=== PATIENT | female | born 1965 | race African-American/Black ===

== ENCOUNTER 2019-01-17 15:21 | Inpatient (IN) | payer MEDICAID ==
[~2019-01-17] VITALS: Ht 162.6 cm; Wt 78.9 kg
[~2019-01-17 15:21] MED LIST: AMIT25TA9 PO; ATEN50TA PO; BACLOFEN; BENA40TA9 PO; CARI350T27 PO; CLON0.3T PO; FURO40TA5 PO; GABA-533 PO; HYDR50TA55 PO; LASIX; OXYC-23; POTA10TA11 PO; [UNRECOGNIZED DRUG - OTHER]
[2019-01-17] MEDS ORDERED: ONDANSETRON HCL 4MG/2ML INJ IV STA (16:44)
[2019-01-17] MEDS ORDERED: MORPHINE SULFATE 4 MG/ML CPJ (NOT FOR IM USE) IV STA (16:44)
[2019-01-17] MEDS ORDERED: NITROGLYCERIN OINT 1GM/INCH UDPKT TD ONE (16:45)
[2019-01-17] MEDS ORDERED: PIPERACILLIN/TAZ 3.375G PREMIX 50 ML IV ONE (16:45)
[2019-01-17] MEDS ORDERED: ASPIRIN 81MG TABLET PO ONE (16:45)
[2019-01-17] MEDS ORDERED: ENALAPRIL 2.5MG/2ML VIAL 2ML IV ONE (16:45)
[2019-01-17] MEDS ORDERED: VANCOMYCIN 1 G PREMIX 200 ML IV ONE (16:45)
[2019-01-17 17:32] LABS: BASOPHILS % 0.5 % (0.0-2.0); HEMATOCRIT. 39.8 % (36.0-48.0); HEMOGLOBIN. 13.1 g/dL (12.0-16.0); LYMPHOCYTES % 24.7 % (20.0-50.0); MEAN CORPUSCULAR VOLUME 84.8 fL (81.0-99.0); MEAN PLATELET VOLUME 8.4 fl (7.4-10.4); MONOCYTES % 7.8 % (2.0-8.0); PLATELET 279 x1000/uL (130-400); RED BLOOD CELL COUNT 4.69 mill/uL (4.2-5.4); RED CELL DISTRIBUTION WIDTH 15.7 % (11.6-14.6)
[2019-01-17 17:34] LABS: PROTHROMBIN TIME 9.8 sec (9.6-11.0)
[2019-01-17 17:36] LABS: CHLORIDE 110 mEq/L (98-107)
[2019-01-17 17:40] LABS: ETHANOL BLOOD < 10 mg/dL
[2019-01-17 17:43] LABS: C REACTIVE PROTEIN QUANT 7.9 mg/L (0.0-3.0)
[2019-01-17] MEDS ORDERED: OXYCODONE HCL/ACETAMINOPHEN 5/325MG TABLET PO ONE (19:00)
[2019-01-17] MEDS ORDERED: CLONIDINE 0.1MG TABLET PO PRN (20:00)
[2019-01-17] MEDS ORDERED: ONDANSETRON HCL 4MG/2ML INJ IV PRN (20:00)
[2019-01-17] MEDS ORDERED: IPRATROPIUM/ALBUTEROL 0.5-3(2.5)MG/3ML NEB HHN PRN (20:00)
[2019-01-17] MEDS ORDERED: MAGNESIUM/ALUMINUM HYDROXIDE/SIMETHICONE 30ML UDC PO PRN (20:00)
[2019-01-17] MEDS ORDERED: GUAIFENESIN 200MG/10ML SUGAR FREE UDC PO PRN (20:00)
[2019-01-17 20:33] LABS: PHOSPHORUS 4.4 mg/dL (2.5-4.9)
[2019-01-17 23:00] VITALS: BP 140/80
[2019-01-17] MEDS: HYDROCODONE/ACETAMINOPHEN 5/325MG TABLET PO PRN (23:14)
[2019-01-18] VITALS (8 sets, daily range): BP systolic 78–150; BP diastolic 49–91
[2019-01-18] MEDS: DIPHENHYDRAMINE 50MG/ML VIAL IV PRN ×3 (02:05→15:32)
[2019-01-18] MEDS: HYDROCODONE/ACETAMINOPHEN 5/325MG TABLET PO PRN ×2 (03:08→09:01)
[2019-01-18 07:06] LABS: BASOPHILS % 0.6 % (0.0-2.0); HEMATOCRIT. 35.6 % (36.0-48.0); HEMOGLOBIN. 11.8 g/dL (12.0-16.0); MEAN CORPUSCULAR HEMOGLOBIN 28.2 pg (28.0-32.0); MEAN CORPUSCULAR VOLUME 85.5 fL (81.0-99.0); MEAN PLATELET VOLUME 8.4 fl (7.4-10.4); MONOCYTES % 8.8 % (2.0-8.0); NEUTROPHILS % 55.6 % (40.0-76.0); PLATELET 228 x1000/uL (130-400); RED BLOOD CELL COUNT 4.17 mill/uL (4.2-5.4); RED CELL DISTRIBUTION WIDTH 15.3 % (11.6-14.6)
[2019-01-18 07:16] LABS: CHLORIDE 110 mEq/L (98-107)
[2019-01-18 07:30] LABS: LDL CHOLESTEROL 62 mg/dL (5-100)
[2019-01-18 07:32] LABS: HDL CHOLESTEROL 67 mg/dL (40-59)
[2019-01-18] MEDS: DOCUSATE SODIUM 100MG CAPSULE PO PRN ×2 (09:00→17:41)
[2019-01-18] MEDS: ENOXAPARIN 40MG/0.4ML SYR SUBCUT SCH (09:00)
[2019-01-18] MEDS: AMLODIPINE 5MG TABLET PO SCH ×2 (09:01→22:00)
[2019-01-18] MEDS: HYDROXYZINE 25MG TABLET PO PRN (12:00)
[2019-01-18] MEDS: CARISOPRODOL 350 MG TABLET PO SCH ×2 (12:22→17:41)
[2019-01-18] MEDS: GABAPENTIN 400MG CAPSULE PO SCH ×2 (12:22→17:42)
[2019-01-18] MEDS: OXYCODONE HCL/ACETAMINOPHEN 5/325MG TABLET PO PRN (13:53)
[2019-01-18] MEDS ORDERED: CLONIDINE 0.3MG TABLET PO SCH (17:00)
[2019-01-18] MEDS ORDERED: ATENOLOL 50 MG TABLET PO SCH (17:00)
[2019-01-18] MEDS: AMITRIPTYLINE 25MG TABLET PO SCH (17:42)
[2019-01-18] MEDS ORDERED: SODIUM CHLORIDE 0.9% 500 ML IV NR (22:15)
[2019-01-19] VITALS (11 sets, daily range): BP systolic 88–136; BP diastolic 36–88
[2019-01-19] MEDS ORDERED: PIPERACILLIN/TAZOBACTAM 3.375GM/50ML PREMIX IV SCH (02:00)
[2019-01-19] MEDS: OXYCODONE HCL/ACETAMINOPHEN 5/325MG TABLET PO PRN ×4 (02:43→16:15)
[2019-01-19] MEDS: DIPHENHYDRAMINE 50MG/ML VIAL IV PRN ×3 (02:45→16:13)
[2019-01-19] MEDS: SODIUM CHLORIDE 0.9% 1,000 ML IV SCH ×2 (02:46→21:05)
[2019-01-19] MEDS: PIPERACILLIN/TAZOBACTAM 3.375 G in DEXT 5% WATER 100 ML IV SCH ×2 (03:46→12:00)
[2019-01-19] MEDS ORDERED: VANCOMYCIN 750 MG PREMIX 150 ML IV SCH ×2 (04:00→20:00)
[2019-01-19] MEDS: HYDROCODONE/ACETAMINOPHEN 5/325MG TABLET PO PRN (08:40)
[2019-01-19] MEDS ORDERED: POTASSIUM CHLORIDE 10MEQ TABLET SR PO SCH (09:00)
[2019-01-19] MEDS ORDERED: BENAZEPRIL 10MG TABLET PO SCH (09:00)
[2019-01-19] MEDS: ENOXAPARIN 40MG/0.4ML SYR SUBCUT SCH (09:00)
[2019-01-19] MEDS ORDERED: FUROSEMIDE 40MG TABLET PO SCH (09:00)
[2019-01-19] MEDS: CARISOPRODOL 350 MG TABLET PO SCH ×3 (10:19→16:13)
[2019-01-19 11:30] LABS: BASOPHILS % 0.3 % (0.0-2.0); EOSINOPHILS % 4.4 % (0.0-5.0); HEMOGLOBIN. 11.3 g/dL (12.0-16.0); LYMPHOCYTES % 35.7 % (20.0-50.0); MEAN CORPUSCULAR HEMOGLOBIN 28.5 pg (28.0-32.0); MEAN CORPUSCULAR VOLUME 85.7 fL (81.0-99.0); MEAN PLATELET VOLUME 8.7 fl (7.4-10.4); MONOCYTES % 10.2 % (2.0-8.0); NEUTROPHILS % 49.4 % (40.0-76.0); PLATELET 201 x1000/uL (130-400); RED BLOOD CELL COUNT 3.96 mill/uL (4.2-5.4); RED CELL DISTRIBUTION WIDTH 15.7 % (11.6-14.6)
[2019-01-19] MEDS: GABAPENTIN 400MG CAPSULE PO SCH ×2 (12:30→21:05)
[2019-01-19] MEDS ORDERED: LIDOCAINE HCL 1% 20ML VIAL (Pyxis) INJ ONE (14:00)
[2019-01-19] MEDS ORDERED: SODIUM BICARBONATE 4% (2.4MEQ) 5ML VIAL IV ONE (14:01)
[2019-01-19] MEDS: AMITRIPTYLINE 25MG TABLET PO SCH (16:13)
[2019-01-19] MEDS: ENOXAPARIN 30MG/0.3ML SYR SUBCUT SCH (17:22)
[2019-01-19] MEDS: CEFTRIAXONE 2 G in DEXTROSE 5% WATER 50 ML IV SCH (18:25)
[2019-01-20] VITALS (12 sets, daily range): BP systolic 102–147; BP diastolic 59–89
[2019-01-20] MEDS: DIPHENHYDRAMINE 50MG/ML VIAL IV PRN ×4 (02:08→21:25)
[2019-01-20] MEDS: OXYCODONE HCL/ACETAMINOPHEN 5/325MG TABLET PO PRN ×3 (04:38→18:47)
[2019-01-20 07:12] LABS: HIV SCREEN 4G Non Reactive (Non Reactive)
[2019-01-20 07:50] LABS: BASOPHILS % 0.4 % (0.0-2.0); EOSINOPHILS % 3.5 % (0.0-5.0); HEMATOCRIT. 32.8 % (36.0-48.0); HEMOGLOBIN. 10.8 g/dL (12.0-16.0); LYMPHOCYTES % 31.6 % (20.0-50.0); MEAN CORPUSCULAR HEMOGLOBIN 28.1 pg (28.0-32.0); MEAN CORPUSCULAR VOLUME 85.4 fL (81.0-99.0); MEAN PLATELET VOLUME 8.8 fl (7.4-10.4); MONOCYTES % 11.7 % (2.0-8.0); NEUTROPHILS % 52.8 % (40.0-76.0); PLATELET 182 x1000/uL (130-400); RED BLOOD CELL COUNT 3.84 mill/uL (4.2-5.4); RED CELL DISTRIBUTION WIDTH 15.6 % (11.6-14.6)
[2019-01-20] MEDS: CARISOPRODOL 350 MG TABLET PO SCH ×3 (09:57→16:08)
[2019-01-20] MEDS: GABAPENTIN 400MG CAPSULE PO SCH ×3 (09:57→16:08)
[2019-01-20] MEDS ORDERED: CLONIDINE 0.1MG TABLET PO PRN (10:15)
[2019-01-20] MEDS: VANCOMYCIN 750 MG PREMIX 150 ML IV SCH ×2 (11:46→21:25)
[2019-01-20 12:42] LABS: CLARITY URINE CLEAR (CLEAR); COLOR URINE YELLOW (YELLOW); KETONES URINE NEGATIVE (NEGATIVE); LEUKOCYTE ESTERASE URINE NEGATIVE (NEGATIVE); NITRITE URINE NEGATIVE (NEGATIVE); OCCULT BLOOD URINE NEGATIVE (NEGATIVE); PROTEIN URINE NEGATIVE (NEGATIVE); UROBILINOGEN URINE 0.2 E.U./dL (0.2-1.0)
[2019-01-20] MEDS ORDERED: MORPHINE SULFATE 2 MG/ML CPJ (NOT FOR IM USE) IV NR (15:30)
[2019-01-20] MEDS: ENOXAPARIN 30MG/0.3ML SYR SUBCUT SCH (16:08)
[2019-01-20] MEDS: CEFTRIAXONE 2 G in DEXTROSE 5% WATER 50 ML IV SCH (17:32)
[2019-01-20] MEDS: SODIUM CHLORIDE 0.9% 1,000 ML IV SCH (17:33)
[2019-01-20] MEDS: AMITRIPTYLINE 25MG TABLET PO SCH (21:26)
[2019-01-21] VITALS (9 sets, daily range): BP systolic 101–161; BP diastolic 25–104
[2019-01-21] MEDS: DIPHENHYDRAMINE 50MG/ML VIAL IV PRN ×6 (00:48→23:47)
[2019-01-21] MEDS: OXYCODONE HCL/ACETAMINOPHEN 5/325MG TABLET PO PRN ×4 (00:49→19:45)
[2019-01-21 07:01] LABS: BASOPHILS % 0.5 % (0.0-2.0); EOSINOPHILS % 4.8 % (0.0-5.0); HEMATOCRIT. 32.2 % (36.0-48.0); HEMOGLOBIN. 10.5 g/dL (12.0-16.0); LYMPHOCYTES % 31.6 % (20.0-50.0); MEAN CORPUSCULAR VOLUME 85.7 fL (81.0-99.0); MEAN PLATELET VOLUME 8.7 fl (7.4-10.4); NEUTROPHILS % 52.1 % (40.0-76.0); PLATELET 181 x1000/uL (130-400); RED BLOOD CELL COUNT 3.76 mill/uL (4.2-5.4); RED CELL DISTRIBUTION WIDTH 15.4 % (11.6-14.6)
[2019-01-21 07:12] LABS: CHLORIDE 109 mEq/L (98-107)
[2019-01-21] MEDS: GABAPENTIN 400MG CAPSULE PO SCH ×3 (08:33→17:29)
[2019-01-21] MEDS: CARISOPRODOL 350 MG TABLET PO SCH ×3 (08:33→17:29)
[2019-01-21] MEDS: VANCOMYCIN 750 MG PREMIX 150 ML IV SCH (09:45)
[2019-01-21] MEDS: HYDROXYZINE 25MG TABLET PO PRN ×2 (11:12→23:46)
[2019-01-21] MEDS: AMLODIPINE 2.5MG TABLET PO SCH ×2 (14:03→20:58)
[2019-01-21] MEDS ORDERED: ENOXAPARIN 40MG/0.4ML SYR SUBCUT SCH (17:00)
[2019-01-21] MEDS: CEFTRIAXONE 2 G in DEXTROSE 5% WATER 50 ML IV SCH (17:29)
[2019-01-21] MEDS: AMITRIPTYLINE 25MG TABLET PO SCH (20:57)
[2019-01-22] VITALS (15 sets, daily range): BP systolic 46–171; BP diastolic 34–108
[2019-01-22] MEDS: HYDROMORPHONE HCL/PF 2MG/ML CPJ IV PRN ×5 (00:41→13:22)
[2019-01-22] MEDS: VANCOMYCIN 1 G PREMIX 200 ML IV SCH ×2 (03:24→22:29)
[2019-01-22] MEDS: CARISOPRODOL 350 MG TABLET PO SCH ×3 (08:16→17:00)
[2019-01-22] MEDS: AMLODIPINE 2.5MG TABLET PO SCH ×2 (08:16→22:28)
[2019-01-22] MEDS: GABAPENTIN 400MG CAPSULE PO SCH ×3 (08:16→17:00)
[2019-01-22] MEDS: DEXT 5%/0.9% NACL 1,000 ML IV SCH ×2 (08:54→22:29)
[2019-01-22 09:22] LABS: BASOPHILS % 0.5 % (0.0-2.0); EOSINOPHILS % 5.8 % (0.0-5.0); HEMATOCRIT. 32.3 % (36.0-48.0); HEMOGLOBIN. 10.5 g/dL (12.0-16.0); LYMPHOCYTES % 26.4 % (20.0-50.0); MEAN CORPUSCULAR HEMOGLOBIN 27.9 pg (28.0-32.0); MEAN CORPUSCULAR VOLUME 85.5 fL (81.0-99.0); MEAN PLATELET VOLUME 8.5 fl (7.4-10.4); MONOCYTES % 10.1 % (2.0-8.0); NEUTROPHILS % 57.2 % (40.0-76.0); PLATELET 195 x1000/uL (130-400); RED BLOOD CELL COUNT 3.77 mill/uL (4.2-5.4); RED CELL DISTRIBUTION WIDTH 15.5 % (11.6-14.6)
[2019-01-22 09:44] LABS: CHLORIDE 107 mEq/L (98-107)
[2019-01-22 09:50] LABS: PHOSPHORUS 4.3 mg/dL (2.5-4.9)
[2019-01-22] MEDS: DIPHENHYDRAMINE 50MG/ML VIAL IV PRN (12:16)
[2019-01-22] MEDS ORDERED: NALOXONE HCL 0.4 MG/ML 1ML VIAL IV PRN ×2 (13:00→17:30)
[2019-01-22] MEDS ORDERED: BUPIVACAINE HCL/PF 0.25% (2.5MG/ML) 10ML ONE (14:20)
[2019-01-22] MEDS ORDERED: VANCOMYCIN HCL 500 MG/VIAL ONE ×2 (14:21→16:09)
[2019-01-22] MEDS ORDERED: BACITRACIN 50,000 UNITS/VIAL ONE (14:21)
[2019-01-22] MEDS ORDERED: GENTAMICIN SULF 40MG/ML 2ML VIAL ONE (15:32)
[2019-01-22] MEDS ORDERED: EPINEPHRINE 1:1000 1 MG/ML AMP ONE (16:26)
[2019-01-22] MEDS ORDERED: MORPHINE SULFATE/PF 1MG/ML 10ML AMP ONE (16:26)
[2019-01-22] MEDS ORDERED: ROPIVACAINE HCL 10MG/ML 20 ML VIAL EPI ONE (16:27)
[2019-01-22] MEDS ORDERED: KETOROLAC 30MG/ML VIAL ONE (16:27)
[2019-01-22] MEDS ORDERED: TRANEXAMIC ACID 1,000 MG in SODIUM CHLORIDE 0.9% 100 ML IV NR ×2 (16:30→17:30)
[2019-01-22] MEDS ORDERED: FENTANYL CITRATE/PF 50MCG/ML 2ML VIAL ONE (16:55)
[2019-01-22] MEDS ORDERED: MIDAZOLAM HCL 2 MG/2 ML VIAL ONE (16:55)
[2019-01-22] MEDS ORDERED: PROPOFOL 200MG/20ML VIAL IV ONE (16:55)
[2019-01-22] MEDS ORDERED: TRANEXAMIC ACID 1,000 MG/10 ML IV NR (17:00)
[2019-01-22] MEDS ORDERED: ONDANSETRON HCL 4MG/2ML INJ ONE (17:15)
[2019-01-22] MEDS ORDERED: DEXAMETHASONE 4MG/ML 1ML VIAL ONE (17:15)
[2019-01-22] MEDS ORDERED: HYDROMORPHONE HCL/PF 2MG/ML CPJ IV PRN (17:30)
[2019-01-22] MEDS ORDERED: ONDANSETRON HCL 4MG/2ML INJ IM PRN (17:30)
[2019-01-22] MEDS ORDERED: MEPERIDINE HCL/PF 25MG/ML CPJ IV PRN (17:30)
[2019-01-22] MEDS ORDERED: DIPHENHYDRAMINE 50MG/ML VIAL IM PRN (17:30)
[2019-01-22] MEDS ORDERED: ONDANSETRON HCL 4MG/2ML INJ IV PRN (17:30)
[2019-01-22] MEDS ORDERED: LABETALOL 5MG/ML SYR 20 MG/4 ML SYRINGE IV PRN (17:30)
[2019-01-22] MEDS: CEFTRIAXONE 2 G in DEXTROSE 5% WATER 50 ML IV SCH (18:45)
[2019-01-22] MEDS ORDERED: KETOROLAC 30MG/ML VIAL IV PRN (20:15)
[2019-01-22] MEDS ORDERED: LORAZEPAM 2MG/ML CPJ IV PRN (20:30)
[2019-01-22] MEDS: OXYCODONE HCL/ACETAMINOPHEN 5/325MG TABLET PO PRN (21:38)
[2019-01-22] MEDS: AMITRIPTYLINE 25MG TABLET PO SCH (22:27)
[2019-01-23] VITALS (12 sets, daily range): BP systolic 81–190; BP diastolic 55–106
[2019-01-23] MEDS: HYDROMORPHONE HCL/PF 2MG/ML CPJ IV PRN ×2 (00:13→06:02)
[2019-01-23 05:56] LABS: CHLORIDE 106 mEq/L (98-107)
[2019-01-23] MEDS: DIPHENHYDRAMINE 50MG/ML VIAL IV PRN (06:01)
[2019-01-23 06:16] LABS: MEAN CORPUSCULAR HEMOGLOBIN 28.4 pg (28.0-32.0); MEAN CORPUSCULAR VOLUME 87.6 fL (81.0-99.0); MEAN PLATELET VOLUME 8.4 fl (7.4-10.4); PLATELET 165 x1000/uL (130-400); RED BLOOD CELL COUNT 3.88 mill/uL (4.2-5.4); RED CELL DISTRIBUTION WIDTH 15.7 % (11.6-14.6)
[2019-01-23] MEDS: CARISOPRODOL 350 MG TABLET PO SCH ×3 (08:32→17:03)
[2019-01-23] MEDS: GABAPENTIN 400MG CAPSULE PO SCH ×3 (08:32→17:03)
[2019-01-23] MEDS: CLONIDINE 0.1MG TABLET PO SCH ×3 (08:32→21:37)
[2019-01-23] MEDS: AMLODIPINE 2.5MG TABLET PO SCH ×2 (08:32→21:37)
[2019-01-23] MEDS: LORAZEPAM 2MG/ML CPJ IV PRN (10:36)
[2019-01-23] MEDS: ACETAMINOPHEN 325MG TABLET PO PRN ×2 (10:56→21:38)
[2019-01-23 11:32] LABS: PLATELET ESTIMATE NORMAL
[2019-01-23] MEDS: DEXT 5%/0.9% NACL 1,000 ML IV SCH (12:31)
[2019-01-23] MEDS: VANCOMYCIN 1 G PREMIX 200 ML IV SCH (17:03)
[2019-01-23] MEDS: CEFTRIAXONE 2 G in DEXTROSE 5% WATER 50 ML IV SCH (17:59)
[2019-01-23] MEDS: AMITRIPTYLINE 25MG TABLET PO SCH (21:36)
[2019-01-24] VITALS: BP 114/67
[2019-01-24] MEDS: HYDROMORPHONE HCL/PF 2MG/ML CPJ IV PRN ×5 (01:43→18:56)
[2019-01-24 04:00] VITALS: BP 113/70
[2019-01-24] MEDS: CLONIDINE 0.1MG TABLET PO SCH ×3 (05:34→22:00)
[2019-01-24 08:00] VITALS: BP 162/81
[2019-01-24] MEDS: CARISOPRODOL 350 MG TABLET PO SCH ×3 (08:07→17:58)
[2019-01-24] MEDS: AMLODIPINE 2.5MG TABLET PO SCH (08:07)
[2019-01-24] MEDS: GABAPENTIN 400MG CAPSULE PO SCH ×3 (08:07→17:58)
[2019-01-24 11:04] LABS: BASOPHILS % 0.5 % (0.0-2.0); EOSINOPHILS % 1.2 % (0.0-5.0); LYMPHOCYTES % 13.1 % (20.0-50.0); MEAN CORPUSCULAR HEMOGLOBIN 28.3 pg (28.0-32.0); MEAN CORPUSCULAR VOLUME 85.6 fL (81.0-99.0); MEAN PLATELET VOLUME 8.9 fl (7.4-10.4); MONOCYTES % 9.7 % (2.0-8.0); NEUTROPHILS % 75.5 % (40.0-76.0); PLATELET 134 x1000/uL (130-400); RED BLOOD CELL COUNT 3.06 mill/uL (4.2-5.4); RED CELL DISTRIBUTION WIDTH 15.4 % (11.6-14.6)
[2019-01-24 11:06] LABS: CHLORIDE 103 mEq/L (98-107)
[2019-01-24 11:12] LABS: HEMATOCRIT. 26.2 % (36.0-48.0); HEMOGLOBIN. 8.7 g/dL (12.0-16.0)
[2019-01-24 12:00] VITALS: BP 123/74
[2019-01-24] MEDS: OXYCODONE HCL/ACETAMINOPHEN 5/325MG TABLET PO PRN ×2 (13:06→20:52)
[2019-01-24] MEDS: DEXT 5%/0.9% NACL 1,000 ML IV SCH (13:07)
[2019-01-24] MEDS ORDERED: ZOLPIDEM TARTRATE 5MG TABLET PO PRN (14:00)
[2019-01-24] MEDS: VANCOMYCIN 1 G PREMIX 200 ML IV SCH (14:38)
[2019-01-24 16:00] VITALS: BP 101/59
[2019-01-24] MEDS: CEFTRIAXONE 2 G in DEXTROSE 5% WATER 50 ML IV SCH (17:58)
[2019-01-24 20:00] VITALS: BP 111/56
[2019-01-24] MEDS: AMITRIPTYLINE 25MG TABLET PO SCH (20:52)
[2019-01-24] MEDS: DIPHENHYDRAMINE 50MG/ML VIAL IV PRN (22:11)
[2019-01-25] VITALS: BP_SYST 134; BP_SYST 99; BP_DIAS 52; BP_DIAS 79
[2019-01-25] MEDS: ACETAMINOPHEN 325MG TABLET PO PRN (01:54)
[2019-01-25 04:00] VITALS: BP_SYST 139; BP_SYST 99; BP_DIAS 52; BP_DIAS 70
[2019-01-25] MEDS: DEXT 5%/0.9% NACL 1,000 ML IV SCH (04:56)
[2019-01-25] MEDS: HYDROMORPHONE HCL/PF 2MG/ML CPJ IV PRN ×4 (04:57→20:37)
[2019-01-25] MEDS: VANCOMYCIN 1 G PREMIX 200 ML IV SCH ×2 (05:03→18:49)
[2019-01-25] MEDS: CLONIDINE 0.1MG TABLET PO SCH ×3 (06:00→21:32)
[2019-01-25 07:37] LABS: BASOPHILS % 0.2 % (0.0-2.0); EOSINOPHILS % 2.2 % (0.0-5.0); HEMATOCRIT. 24.5 % (36.0-48.0); HEMOGLOBIN. 8.4 g/dL (12.0-16.0); LYMPHOCYTES % 18.3 % (20.0-50.0); MEAN CORPUSCULAR HEMOGLOBIN 28.9 pg (28.0-32.0); MEAN CORPUSCULAR VOLUME 84.5 fL (81.0-99.0); MEAN PLATELET VOLUME 8.5 fl (7.4-10.4); MONOCYTES % 9.9 % (2.0-8.0); NEUTROPHILS % 69.4 % (40.0-76.0); PLATELET 150 x1000/uL (130-400); RED CELL DISTRIBUTION WIDTH 15.1 % (11.6-14.6)
[2019-01-25 08:00] VITALS: BP 114/73
[2019-01-25 08:26] LABS: PHOSPHORUS 4.3 mg/dL (2.5-4.9)
[2019-01-25] MEDS: CARISOPRODOL 350 MG TABLET PO SCH ×3 (08:32→17:12)
[2019-01-25] MEDS: GABAPENTIN 400MG CAPSULE PO SCH ×3 (08:32→17:12)
[2019-01-25] MEDS: OXYCODONE HCL/ACETAMINOPHEN 5/325MG TABLET PO PRN ×3 (08:33→22:19)
[2019-01-25] MEDS: DIPHENHYDRAMINE 50MG/ML VIAL IV PRN ×3 (10:40→21:18)
[2019-01-25 12:33] VITALS: BP 101/63
[2019-01-25 16:00] VITALS: BP 105/69
[2019-01-25] MEDS: CEFTRIAXONE 2 G in DEXTROSE 5% WATER 50 ML IV SCH (17:12)
[2019-01-25 20:00] VITALS: BP 144/82
[2019-01-25] MEDS: AMITRIPTYLINE 25MG TABLET PO SCH (21:18)
[2019-01-26] VITALS: BP 105/65
[2019-01-26] MEDS: HYDROMORPHONE HCL/PF 2MG/ML CPJ IV PRN ×5 (00:09→17:27)
[2019-01-26] MEDS: DEXT 5%/0.9% NACL 1,000 ML IV SCH ×2 (02:34→20:10)
[2019-01-26] MEDS: DIPHENHYDRAMINE 50MG/ML VIAL IV PRN ×4 (02:35→19:56)
[2019-01-26 04:00] VITALS: BP 104/65
[2019-01-26] MEDS: CLONIDINE 0.1MG TABLET PO SCH (05:55)
[2019-01-26] MEDS: VANCOMYCIN 1 G PREMIX 200 ML IV SCH ×2 (06:12→19:58)
[2019-01-26] MEDS: OXYCODONE HCL/ACETAMINOPHEN 5/325MG TABLET PO PRN (06:20)
[2019-01-26 08:00] VITALS: BP 119/70
[2019-01-26] MEDS: GABAPENTIN 400MG CAPSULE PO SCH ×3 (08:03→17:26)
[2019-01-26 08:12] LABS: BASOPHILS % 0.5 % (0.0-2.0); HEMOGLOBIN. 7.6 g/dL (12.0-16.0); LYMPHOCYTES % 22.3 % (20.0-50.0); MEAN CORPUSCULAR HEMOGLOBIN 28.3 pg (28.0-32.0); MEAN CORPUSCULAR VOLUME 85.3 fL (81.0-99.0); MEAN PLATELET VOLUME 8.8 fl (7.4-10.4); MONOCYTES % 9.9 % (2.0-8.0); NEUTROPHILS % 63.3 % (40.0-76.0); PLATELET 168 x1000/uL (130-400); RED CELL DISTRIBUTION WIDTH 15.4 % (11.6-14.6)
[2019-01-26 08:33] LABS: CHLORIDE 109 mEq/L (98-107)
[2019-01-26 08:45] LABS: PHOSPHORUS 4.4 mg/dL (2.5-4.9)
[2019-01-26] MEDS: CARISOPRODOL 350 MG TABLET PO SCH ×3 (09:07→17:26)
[2019-01-26] MEDS: ACETAMINOPHEN 325MG TABLET PO PRN ×2 (09:08→19:57)
[2019-01-26 12:00] VITALS: BP 118/64
[2019-01-26 16:00] VITALS: BP 121/68
[2019-01-26] MEDS: CEFTRIAXONE 2 G in DEXTROSE 5% WATER 50 ML IV SCH (18:29)
[2019-01-26 20:00] VITALS: BP_SYST 127; BP_SYST 132; BP_DIAS 75; BP_DIAS 84
[2019-01-26] MEDS: AMITRIPTYLINE 25MG TABLET PO SCH (20:03)
[2019-01-27] VITALS (11 sets, daily range): BP systolic 112–154; BP diastolic 72–98
[2019-01-27] MEDS ORDERED: HYDROMORPHONE HCL/PF 2MG/ML CPJ IV PRN (03:00)
[2019-01-27] MEDS: DIPHENHYDRAMINE 50MG/ML VIAL IV PRN ×3 (04:40→18:55)
[2019-01-27] MEDS: OXYCODONE HCL/ACETAMINOPHEN 5/325MG TABLET PO PRN ×2 (07:30→13:31)
[2019-01-27] MEDS: VANCOMYCIN 1 G PREMIX 200 ML IV SCH (08:51)
[2019-01-27] MEDS: GABAPENTIN 400MG CAPSULE PO SCH ×3 (08:52→16:37)
[2019-01-27] MEDS: CARISOPRODOL 350 MG TABLET PO SCH ×3 (08:52→16:37)
[2019-01-27 09:40] LABS: BASOPHILS % 0.5 % (0.0-2.0); EOSINOPHILS % 3.6 % (0.0-5.0); HEMATOCRIT. 27.2 % (36.0-48.0); HEMOGLOBIN. 9.1 g/dL (12.0-16.0); LYMPHOCYTES % 19.5 % (20.0-50.0); MEAN CORPUSCULAR HEMOGLOBIN 28.3 pg (28.0-32.0); MEAN PLATELET VOLUME 8.3 fl (7.4-10.4); MONOCYTES % 7.3 % (2.0-8.0); NEUTROPHILS % 69.1 % (40.0-76.0); PLATELET 215 x1000/uL (130-400); RED CELL DISTRIBUTION WIDTH 15.1 % (11.6-14.6)
[2019-01-27 09:57] LABS: CHLORIDE 107 mEq/L (98-107)
[2019-01-27] MEDS ORDERED: HYDROMORPHONE HCL/PF 2MG/ML CPJ IV SCH (10:15)
[2019-01-27] MEDS ORDERED: NALOXONE HCL 0.4 MG/ML 1ML VIAL IV PRN (10:15)
[2019-01-27] MEDS: CLONIDINE 0.2MG TABLET PO SCH ×2 (14:49→21:22)
[2019-01-27] MEDS: HYDROMORPHONE HCL/PF 2MG/ML CPJ IV PRN ×2 (16:38→20:47)
[2019-01-27] MEDS: CEFTRIAXONE 2 G in DEXTROSE 5% WATER 50 ML IV SCH (18:05)
[2019-01-27] MEDS: AMITRIPTYLINE 25MG TABLET PO SCH (20:46)
[2019-01-28] VITALS: BP 140/86
[2019-01-28] MEDS: VANCOMYCIN 750 MG PREMIX 150 ML IV SCH ×3 (00:23→23:09)
[2019-01-28] MEDS: LORAZEPAM 2MG/ML CPJ IV PRN (00:23)
[2019-01-28] MEDS: HYDROMORPHONE HCL/PF 2MG/ML CPJ IV PRN ×5 (03:30→18:39)
[2019-01-28 04:00] VITALS: BP 105/84
[2019-01-28 05:34] LABS: CHLORIDE 106 mEq/L (98-107)
[2019-01-28 05:39] LABS: PHOSPHORUS 4.5 mg/dL (2.5-4.9)
[2019-01-28 05:51] LABS: BASOPHILS % 0.5 % (0.0-2.0); EOSINOPHILS % 4.1 % (0.0-5.0); HEMATOCRIT. 27.4 % (36.0-48.0); HEMOGLOBIN. 9.3 g/dL (12.0-16.0); LYMPHOCYTES % 17.3 % (20.0-50.0); MEAN CORPUSCULAR HEMOGLOBIN 28.4 pg (28.0-32.0); MEAN CORPUSCULAR VOLUME 84.2 fL (81.0-99.0); NEUTROPHILS % 68.1 % (40.0-76.0); PLATELET 217 x1000/uL (130-400); RED BLOOD CELL COUNT 3.26 mill/uL (4.2-5.4); RED CELL DISTRIBUTION WIDTH 15.1 % (11.6-14.6)
[2019-01-28] MEDS: CLONIDINE 0.2MG TABLET PO SCH ×3 (06:00→21:29)
[2019-01-28 08:00] VITALS: BP 146/94
[2019-01-28] MEDS: GABAPENTIN 400MG CAPSULE PO SCH ×3 (08:20→17:01)
[2019-01-28] MEDS: CARISOPRODOL 350 MG TABLET PO SCH ×3 (08:20→17:01)
[2019-01-28] MEDS: DIPHENHYDRAMINE 50MG/ML VIAL IV PRN ×2 (09:43→19:45)
[2019-01-28] MEDS: DEXT 5%/0.9% NACL 1,000 ML IV SCH (10:01)
[2019-01-28 12:00] VITALS: BP 124/76
[2019-01-28] MEDS: FUROSEMIDE 40MG TABLET PO SCH (12:20)
[2019-01-28 16:00] VITALS: BP 100/60
[2019-01-28] MEDS: CEFTRIAXONE 2 G in DEXTROSE 5% WATER 50 ML IV SCH (17:01)
[2019-01-28 20:00] VITALS: BP 121/79
[2019-01-28] MEDS: AMITRIPTYLINE 25MG TABLET PO SCH (21:03)
[2019-01-28] MEDS: OXYCODONE HCL/ACETAMINOPHEN 5/325MG TABLET PO PRN (21:05)
[2019-01-29] VITALS: BP 117/78
[2019-01-29] MEDS: HYDROMORPHONE HCL/PF 2MG/ML CPJ IV PRN ×3 (00:22→09:17)
[2019-01-29 04:00] VITALS: BP 128/73
[2019-01-29] MEDS: CLONIDINE 0.2MG TABLET PO SCH ×2 (05:43→14:00)
[2019-01-29 08:00] VITALS: BP 138/79
[2019-01-29] MEDS: CARISOPRODOL 350 MG TABLET PO SCH ×2 (09:17→13:00)
[2019-01-29] MEDS: GABAPENTIN 400MG CAPSULE PO SCH ×2 (09:17→13:00)
[2019-01-29] MEDS: FUROSEMIDE 40MG TABLET PO SCH (09:17)
[2019-01-29] MEDS: DEXT 5%/0.9% NACL 1,000 ML IV SCH (09:18)
[2019-01-29] MEDS: VANCOMYCIN 750 MG PREMIX 150 ML IV SCH (11:32)
[2019-01-29] MEDS: OXYCODONE HCL/ACETAMINOPHEN 5/325MG TABLET PO PRN (11:32)
[2019-01-29 12:02] VITALS: BP 147/69
[2019-01-29 12:56] VITALS: BP 111/77
[2019-01-29 13:06] LABS: BARBITURATE SCREEN Negative ug/mL (Cutoff:0.1); BENZODIAZEPINE SCREEN Negative ng/mL (Cutoff:20); OPIATES SCREEN Negative ng/mL (Cutoff:5); PHENCYCLIDINE SCREEN Negative ng/mL (Cutoff:8)
== END 2019-01-29 14:07 | disposition home health service (06) | DRG 302 ==
LOC: ER 15:21 → 7WST 19:19 → EDBEDREQTM 19:22 → EDBEDREQ 19:22 → ENRESERV 21:33 → 5EST 01-18 23:42 → 6WST 01-24 01:05 → 6EST 01-26 11:31
PROVIDERS: ADMIT Internal Medicine; ATTEND Internal Medicine
PROC: 0S9D3ZZ Drainage of Left Knee Joint, Percutaneous Approach (ICD-10-PCS; principal; 2019-01-19)
PROC: 02HV33Z Insertion of Infusion Device into Superior Vena Cava, Percutaneous Approach (ICD-10-PCS; 2019-01-20)
PROC: B548ZZA Ultrasonography of Superior Vena Cava, Guidance (ICD-10-PCS; 2019-01-20)
PROC: 0SRD0EZ Replacement of Left Knee Joint with Articulating Spacer, Open Approach (ICD-10-PCS; 2019-01-22)
PROC: 0SPD0JZ Removal of Synthetic Substitute from Left Knee Joint, Open Approach (ICD-10-PCS; 2019-01-22)
PROC: 30233N1 Transfusion of Nonautologous Red Blood Cells into Peripheral Vein, Percutaneous Approach (ICD-10-PCS; 2019-01-27)
DX: T84.54XA Infection and inflammatory reaction due to internal left knee prosthesis, initial encounter (principal); G93.40 Encephalopathy, unspecified; I13.0 Hypertensive heart and chronic kidney disease with heart failure and stage 1 through stage 4 chronic kidney disease, or unspecified chronic kidney disease; N17.9 Acute kidney failure, unspecified; I95.9 Hypotension, unspecified; I50.32 Chronic diastolic (congestive) heart failure; N18.3 Chronic kidney disease, stage 3 (moderate); T84.033A Mechanical loosening of internal left knee prosthetic joint, initial encounter; D64.9 Anemia, unspecified; F17.210 Nicotine dependence, cigarettes, uncomplicated; M94.0 Chondrocostal junction syndrome [Tietze]; Y79.2 Prosthetic and other implants, materials and accessory orthopedic devices associated with adverse incidents; Y83.1 Surgical operation with implant of artificial internal device as the cause of abnormal reaction of the patient, or of later complication, without mention of misadventure at the time of the procedure; F14.90 Cocaine use, unspecified, uncomplicated; Z96.649 Presence of unspecified artificial hip joint; Z96.652 Presence of left artificial knee joint; B95.2 Enterococcus as the cause of diseases classified elsewhere; B95.61 Methicillin susceptible Staphylococcus aureus infection as the cause of diseases classified elsewhere; Z88.6 Allergy status to analgesic agent; Z90.5 Acquired absence of kidney; Z71.6 Tobacco abuse counseling; Z79.899 Other long term (current) drug therapy; Z82.49 Family history of ischemic heart disease and other diseases of the circulatory system; Y92.89 Other specified places as the place of occurrence of the external cause
CPT/HCPCS: 20611; 36415; 71045; 73552; 73562; 73590; 76937; 78582; 80048; 80061; 80202; 80307; 80320; 81003; 83605; 83735; 83880; 84100; 84145; 84443; 84484; 85379; 85651; 86140; 86803; 86850; 86900; 86920; 87070; 87075; 87077; 87186; 87389; 88300; 88304; 93005; 93306; 93971; 97116; 97162; 97164; 97166; 97530; 99291; A9558; C1713; C1725; C1776; C1893; J0696; J1100; J1170; J1200; J1580; J1650; J1885; J2060; J2250; J2270; J2274; J2405; J2543; J2704; J2795; J3010; J3370; J3490; J7030; J7040; J7042; J7050; J7060; L1830; P9016; G0480

== ENCOUNTER 2023-12-04 21:51 | Emergency (ER) | payer MEDICAID ==
[~2023-12-04] VITALS: Ht 167.6 cm; Wt 65.0 kg
[~2023-12-04 21:51] MED LIST changes: -BACLOFEN; -BENA40TA9 PO; +BENA40TA91 PO; -GABA-533 PO; +GABA-534 PO; -LASIX; -OXYC-23; +POTA-185 PO; -POTA10TA11 PO; -[UNRECOGNIZED DRUG - OTHER]
[2023-12-04 21:59] VITALS: BP 146/84; PULSE 82; RESP 16; TEMP 98.6; O2SAT 99
[2023-12-04] MEDS: KETOROLAC 15MG/ML VIAL IM ONE (23:12)
[2023-12-04] MEDS ORDERED: TOPUD MT (23:36)
[2023-12-04] MEDS ORDERED: LIDO700A15 TP (23:36)
== END 2023-12-05 00:51 | disposition home or self-care (01) ==
LOC: ER 21:51
DX: S80.02XA Contusion of left knee, initial encounter (principal); S80.01XA Contusion of right knee, initial encounter; I10 Essential (primary) hypertension; M54.2 Cervicalgia; Z79.899 Other long term (current) drug therapy; Z88.5 Allergy status to narcotic agent; Y08.89XA Assault by other specified means, initial encounter; Y93.89 Activity, other specified; Y92.89 Other specified places as the place of occurrence of the external cause; Y99.8 Other external cause status
CPT/HCPCS: 99283; 96372; J1885